=== PATIENT | female | born 1965 | race Caucasian/White ===

== ENCOUNTER 2017-12-07 06:11 | Day surgery (SDC) | payer OTHER ==
[~2017-12-07] VITALS: Ht 165.1 cm; Wt 71.7 kg
[2017-12-07] MEDS ORDERED: LACTATED RINGERS 1,000 ML IV SCH (06:46)
[2017-12-07] MEDS ORDERED: BUPIVACAINE/PF-EPI 0.5% 1:200K ONE (06:47)
[2017-12-07 06:50] VITALS: BP 178/108
[2017-12-07] MEDS ORDERED: ATEN25TA PO (06:50)
[2017-12-07] MEDS ORDERED: MELA1TAB22 PO (06:50)
[2017-12-07] MEDS ORDERED: MULT-508 PO (06:50)
[2017-12-07] MEDS ORDERED: FENTANYL PF 100 MCG/2ML ONE (07:04)
[2017-12-07] MEDS ORDERED: MIDAZOLAM 1 MG/ML, 2ML ONE (07:04)
[2017-12-07] MEDS ORDERED: FAMOTIDINE 20 MG TABLET PO ONE (07:30)
[2017-12-07] MEDS ORDERED: ACETAMINOPHEN 500 MG TABLET PO ONE (07:30)
[2017-12-07] MEDS ORDERED: ONDANSETRON ODT 8 MG PO ONE (07:30)
[2017-12-07] MEDS ORDERED: OXYcodone IR 5MG TABLET PO ONE (07:30)
[2017-12-07] MEDS ORDERED: SCOPOLAMINE PATCH, 1.5MG PATCH.TD72 TD ONE (07:30)
[2017-12-07] MEDS ORDERED: GABAPENTIN 300 MG CAPSULE PO ONE (07:30)
[2017-12-07] MEDS ORDERED: DEXAMETHASONE 4 MG/ML, 1ML ONE (07:33)
[2017-12-07] MEDS ORDERED: KETOROLAC 30 MG/1 ML ONE (07:33)
[2017-12-07] MEDS ORDERED: PROPOFOL 10 MG/ML, 20ML ONE (07:33)
[2017-12-07] MEDS ORDERED: CEFAZOLIN 1,000 MG ONE (07:33)
[2017-12-07] MEDS ORDERED: HYDROcodone/APAP 7.5-325MG/15ML UDC PO PRN (08:30)
[2017-12-07] MEDS ORDERED: HYDROmorphone 2 MG/ML, 1ML IV PRN (08:30)
[2017-12-07] MEDS ORDERED: MEPERIDINE/PF 25MG/0.5ML IVPush PRN (08:30)
[2017-12-07] MEDS ORDERED: ONDANSETRON ODT 8 MG PO PRN (08:30)
[2017-12-07] MEDS ORDERED: OXYcodone 5 MG/5 ML ORAL.SOL UDC PO PRN (08:30)
[2017-12-07] MEDS ORDERED: LABETALOL 5MG/ML, 20ML IV PRN (08:30)
[2017-12-07] MEDS ORDERED: ALBUTEROL SULFATE 2.5 MG/3 ML NPPB PRN (08:30)
[2017-12-07] MEDS ORDERED: EPHEDRINE 50 MG/ML, 1ML IVPush PRN (08:30)
[2017-12-07] MEDS ORDERED: hydrALAzine 20 MG/ML, 1ML IV PRN (08:30)
[2017-12-07] MEDS ORDERED: PROMETHAZINE 25 MG/ML, 1ML IV PRN (08:30)
[2017-12-07] MEDS ORDERED: FENTANYL PF 100 MCG/2ML IV PRN (08:30)
[2017-12-07] MEDS ORDERED: MIDAZOLAM 1 MG/ML, 2ML IV PRN (08:30)
== END 2017-12-07 09:40 | disposition home or self-care (01) ==
LOC: OUT 06:11
PROVIDERS: ATTEND Colon & Rectal Surgery
DX: K62.0 Anal polyp (principal); K62.89 Other specified diseases of anus and rectum; I10 Essential (primary) hypertension; K64.9 Unspecified hemorrhoids; Z72.89 Other problems related to lifestyle
CPT/HCPCS: 36415; 45171; 84703; 88305; J0690; J1100; J1885; J2250; J2704; J3010; J7120; Q0162